=== PATIENT | female | born 1935 | race Caucasian/White ===

== ENCOUNTER 2018-05-12 16:05 | Emergency (ER) | payer MEDICARE ==
[~2018-05-12 16:05] MED LIST: DUONEB IN; MEDDOSEPAK PO; MIRAPEX0.5 MG OR; MIRAPEX1 MG PO; ZITHROMAX250 MG PO
[2018-05-12 16:25] VITALS: BP 173/75
== END 2018-05-12 16:31 | disposition left against medical advice (07) ==
LOC: ED 16:05 → LWOBS 16:31
DX: Z91.19 Patient's noncompliance with other medical treatment and regimen (principal)